=== PATIENT | female | born 1990 | race Caucasian/White ===

== ENCOUNTER 2025-04-26 00:38 | Emergency (ER) | payer OTHER, SELFPAY ==
[2025-04-26 00:41] VITALS: BP 130/72
[2025-04-26 01:19] VITALS: BMI 23.3
[2025-04-26] MEDS: NSS 1000 IV (01:25)
--- NOTE | 2025-04-26 01:55 | ED.GENMED ---
History of Present Illness
General
Chief Complaint: Dehydration Symptoms
Source: patient
Exam Limitations: none
Time Seen by Provider: 04/26/25 01:38
Nursing documentation reviewed up to this point in time: agreed with
History of Present Illness
History of Present Illness:
This is a 34-year-old woman with history of hypothyroidism maintained on Synthroid. She and her family returned home today from 1 week stay at the [facility]. She admits to significant sun exposure, moderate sunburn earlier in the week and this
evening she developed generalized headache accompanied with generalized aches/myalgias. Symptoms have been worsening throughout the evening. She took a dose of Advil at 6 PM, moderate but only temporary relief. She does admit to moderate neck
pain but denies neck stiffness. No sore throat, no nasal congestion. Since arrival to the ED she has developed some nausea and has vomited during my initial evaluation.
Noted to have low-grade fever of 99.7 �F. Patient was unaware that she was febrile.
No close contacts with similar symptoms.
She denies risk of , has menstrual period currently.
No dysuria nor urgency nor hematuria.
She states she has a 'migraine' but no prior history of migraine headaches. She does however admit to similar sporadic headaches most notable when she is somewhat dehydrated.
No weakness nor numbness. No chest pain or cough no shortness of breath. She denies abdominal pain. No diarrhea nor constipation.
Past History
Past History
ED Past Medical History: Hypothyroidism
ED Past Surgical History:
Social History
Tobacco: Non-smoker
Alcohol: Occasional
Drug: None
Personal:
Living: with family
Employment: Employed
Family History
Family History: Other (Noncontributory)
Phy Exam
Physical Exam
Physical Exam:
GENERAL: 34-year-old woman appears her stated age, awake and alert, pleasant, appears in no acute distress. Holding emesis bag. and toddler son are accompanying.
EYE: pupils equal and reactive. anicteric
NECK: Supple, nontender, no meningismus, no significant adenopathy.
ENT: posterior pharynx is clear, oral mucosa is moist. TM clear b/l, nares patent.
CARDIAC: Regular rate and rhythm. no murmur.
LUNGS: Clear breath sounds bilaterally, no acute respiratory distress, no wheezes/rales/rhonchi
ABDOMEN: Soft, nondistended, without focal tenderness, no r/g, no cvat. normoactive BS.
NEUROLOGICAL: Alert and oriented x3, no focal neuro deficits. Gait is steady.
SKIN: Warm and dry, normal color, subacute sunburn to sun exposed areas with superficial skin sloughing. There is no crusting nor erythema nor soft tissue swelling. No palpable skin tenderness.
MUSCULOSKELETAL: No C/C/E. peripheral pulses are full and equal b/l. No palpable tenderness.
PSYCH: Normal and appropriate interaction.
Course
Orders/Labs/Results
Orders:
Orders
04/26/25 01:17
0.9% Sodium Chloride 1000 ml [Nss] 1,000 ml IV BOLUS
04/26/25 01:53
Diphenhydramine [Benadryl] 25 mg IV NOW STA
Ketorolac [Toradol] 15 mg IV NOW STA
Prochlorperazine [Compazine] 10 mg IV NOW STA
04/26/25 01:57
Complete Blood Count/With Diff Urgent
Comprehensive Metabolic Panel Urgent
Abnormal Lab Results
04/26/25
01:57
Absolute Lymphs (auto) 0.4 L 10^3/uL
(1.2-3.4)
Neutrophils % 86.6 H %
(42.2-75.2)
Lymphocytes % 5.8 L %
(20.5-51.1)
04/26/25 01:57
04/26/25 01:57
Vital Signs
Initial and Last Documented VS:
Initial Vital Signs
Temp Pulse Resp BP Pulse Ox
99.7 F 96 20 130/72 97
04/26/25 00:41 04/26/25 00:41 04/26/25 00:41 04/26/25 00:41 04/26/25 00:41
Last Documented Vital Signs
Temp Pulse Resp BP Pulse Ox
99.7 F 96 20 130/72 97
04/26/25 00:41 04/26/25 00:41 04/26/25 00:41 04/26/25 00:41 04/26/25 02:02
MDM/Problems Addressed
Differential Diagnosis Includes:
Patient presents with headache, nausea vomiting, generalized myalgias and noted to have borderline low-grade fever.
Concern for viral syndrome, meningitis is unlikely�overall nontoxic in appearance, neck is supple without meningismus.
Concern for migraine headache versus tension type headache. No focal neurodeficits and overall well in appearance. No indication for imaging.
Will check labs, initiate IV fluids and treat headache with IV Compazine, Benadryl, Toradol.
*Pulse Oximetry
SaO2: 97
Oxygen Mode of Delivery: Room air
Patient hypoxic: no
*Critical Care Note
Total Time (30-74mins, 75-104mins- exclusive of procedures): Not Applicable
Update Note
Update Note:
02:55
Labs are unremarkable.
Patient resting comfortably, headache and myalgias have resolved. No further nausea.
Will discharge to home with recommendations to stay well-hydrated over the next several days.
Tylenol versus ibuprofen as needed for headache, fever.
Avoid sun exposure.
Prompt follow-up with PCP for recheck.
ED Attending Note
-
Portions of this chart may have been created with voice recognition software.� Occasional wrong word or��sound alike� substitutions may have occurred due to the inherent limitations of voice recognition software.
Discharge Plan
Departure
Patient Disposition: Home (Routine Discharge)
Date of Disposition: 04/26/25
Time of Disposition: 02:58
Patient with high blood pressure during this ER visit?: No
Condition: Good
Discharge Problem:
Acute nonintractable headache, Acute viral syndrome
Instructions: Fever in adults - Discharge instructions, Headache in adults - ED discharge instructions
Referrals:
Nai Salamanca CRNP [Family Provider, General] - Call in 1-3 days for appt
Interventions
Interventions:
*Risk Screen - Suicide Last Done: 04/26/25 00:41
*General Assessment Last Done: 04/26/25 01:19
*Neglect/Abuse Screening Last Done: 04/26/25 00:41
*ED- Fall Risk Assessment Last Done: 04/26/25 01:19
*ED COVID-19 Vaccine History Last Done: 04/26/25 01:19
ED- Cardiac Assessment Last Done: 04/26/25 02:38
ED- Neurological Assessment Last Done: 04/26/25 02:38
ED- Pulmonary Assessment Last Done: 04/26/25 02:38
Discharge Date and Time
Print Language: BANGLADESHI
[2025-04-26] MEDS: TORADOL 15 MG IV (01:58)
[2025-04-26] MEDS: BENADRYL 25 MG IV (01:58)
[2025-04-26] MEDS: COMPAZINE 10 MG IV (01:58)
[2025-04-26 02:09] LABS: % Basophils 0.6 % (0-2); % Eosinophils 1.4 % (0-6); % Immature Granulocytes 0.1 % (0-0.5); % Lymphocytes 5.8 % (20.5-51.1); % Monocytes 5.5 % (1.7-9.3); % Neutrophils 86.6 % (42.2-75.2); Absolute Eosinophils 0.1 10^3/uL (0-0.7); Absolute Lymphocytes 0.4 10^3/uL (1.2-3.4); Absolute Monocytes 0.4 10^3/uL (0.1-0.6); Absolute Neutrophils 6.3 10^3/uL (1.4-6.5); Hematocrit 38.6 % (37.0-47.0); Hemoglobin 13.1 g/dL (12.0-16.0); Mean Corp Hgb Conc. 33.9 g/dL (33.0-37.0); Mean Corpuscular Hgb 29.2 pg (27.0-31.0); Mean Corpuscular Volume 86.2 fL (81.0-99.0); Mean Platelet Volume 9.1 fL (7.4-10.4); Nucleated Red Blood Cells % 0 %; Platelet Count 258 10^3/uL (130-400); Red Blood Cell Count 4.48 10^6/uL (4.20-5.40); Red Cell Dist. Width 12.7 % (11.5-14.5); White Blood Cell Count 7.3 10^3/uL (4.8-10.8)
[2025-04-26 02:19] LABS: ALT (SGPT) 18 U/L (0-35); AST (SGOT) 29 U/L (14-36); Albumin 4.4 g/dl (3.5-5.0); Alkaline Phosphatase 79 U/L (38-126); Blood Urea Nitrogen 14 mg/dl (7-17); Calcium 8.8 mg/dl (8.4-10.2); Carbon Dioxide 26 mmol/L (22-30); Chloride 107 mmol/L (98-107); Estimated Creatinine Clearance 97 ml/min; Glucose 97 mg/dl (70-99); Potassium 4.6 mmol/L (3.5-5.1); Sodium 139 mmol/L (135-145); Total Bilirubin 0.6 mg/dl (0.2-1.3); Total Protein 7.2 g/dl (6.3-8.2); eGFR > 60.00
--- NOTE | 2025-04-26 03:03 | EDRN ---
patient is feeling better, dr. Barbosa re-assessed patient who is ready to go home.
== END 2025-04-26 03:06 | disposition home or self-care (01) ==
LOC: EMR 00:38
PROVIDERS: EMERGENCY PHYSICIAN Emergency Medicine; FAMILY PHYSICIAN Nurse Practitioner
DX: R51.9 Headache, unspecified (principal); B34.9 Viral infection, unspecified; E03.9 Hypothyroidism, unspecified; Z79.890 Hormone replacement therapy; Z79.899 Other long term (current) drug therapy
CPT/HCPCS: 99283; 96374; 96375; 96361; 80053; 85025